=== PATIENT | female | born 1955 | race African-American/Black ===

== ENCOUNTER → 2018-03-07 | Outpatient (CLI) | payer OTHER | LOC: CAT 15:53 | DX: K44.9 Diaphragmatic hernia without obstruction or gangrene (principal); I10 Essential (primary) hypertension; K80.80 Other cholelithiasis without obstruction; I70.0 Atherosclerosis of aorta; K40.90 Unilateral inguinal hernia, without obstruction or gangrene, not specified as recurrent; K42.9 Umbilical hernia without obstruction or gangrene; M25.78 Osteophyte, vertebrae; K57.30 Diverticulosis of large intestine without perforation or abscess without bleeding; N81.3 Complete uterovaginal prolapse ==

== ENCOUNTER 2020-05-15 01:53 | Observation (INO) | payer OTHER ==
[~2020-05-15] VITALS: Ht 165.1 cm; Wt 78.9 kg
[2020-05-15] VITALS (10 sets, daily range): BP systolic 100–149; BP diastolic 57–85
[2020-05-15] MEDS ORDERED: HYDROCHLOROTHIA25 M2 PO (02:11)
[2020-05-15] MEDS ORDERED: PROTONIX40 M2 PO (02:11)
[2020-05-15 02:44] LABS: ABSOLUTE NEUTROPHILS 6.8 thou/uL (1.4-8.2); BASOPHILS 0.6 % (0.0-2.0); EOSINOPHILS 0.8 % (0.0-3.0); HEMOGLOBIN 11.9 gm/dL (12.0-15.0); LYMPHOCYTES 21.8 % (24.0-44.0); MCH 30.4 pg (26.0-34.0); MCHC 32.1 g/dL (28.0-37.0); MCV 94.7 fL (80.0-100.0); MONOCYTES 5.8 % (1.0-8.0); PLATELET COUNT 249 thou/uL (150-400); RBC 3.91 mil/uL (4.20-5.00); RDW 13.6 % (10.5-14.5); WBC 9.5 thou/uL (4.0-11.0)
[2020-05-15 03:05] LABS: ANION GAP 15 mmol/L (7-16); BUN 16 mg/dL (7-18); CALCIUM 8.9 mg/dL (8.5-10.1); CHLORIDE 103 mmol/L (98-107); CO2 25 mmol/L (21-32); CREATININE 1.1 mg/dL (0.6-1.0); GLUCOSE 110 mg/dL (74-106); POTASSIUM 3.4 mmol/L (3.5-5.1); SODIUM 143 mmol/L (136-145)
[2020-05-15 03:13] LABS: ALBUMIN 3.9 g/dL (3.4-5.0); DIRECT BILIRUBIN 0.2 mg/dL (<0.1-0.2); SGOT 34 U/L (15-37); SGPT 26 U/L (30-65); TOTAL PROTEIN 7.2 g/dL (6.4-8.2); TROPONIN-I <0.06 ng/mL (<0.06)
[2020-05-15 04:38] LABS: URINE CLARITY CLEAR; URINE COLOR YELLOW; URINE SPECIFIC GRAVITY 1.015 (1.005-1.035)
[2020-05-15 04:39] LABS: URINE BILIRUBIN NEGATIVE (Negative); URINE BLOOD NEGATIVE (Negative); URINE GLUCOSE-RANDOM* NEGATIVE (Negative); URINE KETONES TRACE (Negative); URINE LEUKOCYTES-REFLEX TRACE (Negative); URINE NITRITE-REFLEX NEGATIVE (Negative); URINE PROTEIN (DIPSTICK) NEGATIVE (Negative); URINE UROBILINOGEN 0.2 E.U./dl (0.2-1.0)
--- NOTE | 2020-05-15 06:36 | NUR ---
PATIENT ARRIVED TO THE UNIT AROUND 0450 THIS MORNING. A&OX4. SR ON THE MONITOR. RA. OREINTATED TO THE ROOM, PERSONAL ITEMS WITHIN REACH. NO COMPLAINTS OF SOA AND DISTESS. FALL PRECAUTIONS ARE IN PLACE.
--- NOTE | 2020-05-15 07:17 | EKG ---
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1955 Requested By: Daniel Sparks Order Number: [id number] MD: Pancho Pina Measurements Intervals [place] Rate: 73 P: 58 [place]: 209 QRS: 46 QRSD: 83 T: 52 QT: 443 QTc: 489 Interpretive Statements Sinus rhythm Probable left atrial enlargement Borderline prolonged QT interval Baseline wander in lead(s) V2 Compared to ECG 05/15/2020 02:49:27 Atrial fibrillation no longer present Electronically Signed On 05-15-2020 7:17:30 SALES PROGRAM MANAGER by Pancho Pina [email or web address] <ELECTRONICALLY SIGNED> By: Pancho Pina MD, [facility] 05/15/20 0717 0410 0410 Pancho Pina MD, [facility] /EPI
--- NOTE | 2020-05-15 07:17 | EKG ---
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1955 Requested By: Daniel Sparks Order Number: [id number] : Pancho Pina Measurements Intervals [place] Rate: 139 P: [place]: QRS: 21 QRSD: 85 T: 62 QT: 336 QTc: 511 Interpretive Statements Atrial fibrillation ST depr, consider ischemia, anterolateral lds Prolonged QT interval No previous ECG available for comparison Electronically Signed On 05-15-2020 7:17:24 SHELTER SUPERVISOR by Pancho Pina [email or web address] <ELECTRONICALLY SIGNED> By: Pancho Pina MD, [facility] 05/15/20 0717 0218 0218 Pancho Pina MD, FACC /EPI
--- NOTE | 2020-05-15 07:17 | EKG ---
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
[2020-05-15 08:54] LABS: CHOLESTEROL 207 mg/dL (<200); HDL CHOLESTEROL 89 mg/dL (>40); LDL CHOLESTEROL 107 mg/dL (<100); TC:HDL 2.3 Ratio (Not establshd); TRIGLYCERIDE 56 mg/dL (<150); VLDL 11 mg/dL (<40)
[2020-05-15 08:57] LABS: SERUM ASSESSMENT Clear
--- NOTE | 2020-05-15 11:02 | 2DMMODE ---
[facility] [place] [address] 2 D/M-MODE ECHOCARDIOGRAM Name: DULCE BRUNO Room #: 213-P ADM IN M.R.#: [id number] Admission: 05/15/20 Attend Phys: Leonidas Acosta MD Discharge: Date of : 57 Report #: [id number] THIS REPORT FOR: cc: NO FAMILY PHYSICIAN or PCP NO FAMILY PHYSICIAN or PCP Pancho Pina MD LOCATED WITHIN [facility] ~ APPROVED REPORT Study performed: 05/15/2020 09:33:08 EXAM: Comprehensive 2D, Doppler, and color-flow Echocardiogram Patient Location: Bedside Room #: 213 Status: routine BSA: 1.82 HR: 74 bpm BP: 136/79 mmHg Rhythm: NSR Other Information Study Quality: Adequate Indications Atrial Fibrillation Chest Pain Hx: HTN, mild CAD, EOTH abuse 2D Dimensions RVDd: 40.58 mm IVSd: 10.85 (7-11mm) LVOT Diam: 22.57 (18-24mm) LVDd: 46.24 mm PWd: 8.90 (7-11mm) LVDs: 20.99 (25-40mm) Aortic Root: 32.90 mm Volumes Left Atrial Volume (Systole) Single Plane 4CH: 41.05 mL Single Plane 2CH: 73.95 mL LA ESV Index: 37.00 mL/m2 Aortic Valve AoV Peak Earnest.: 1.29 m/s AO Peak Gr.: 6.67 mmHg LVOT Max P.36 mmHg LVOT Max V: 1.26 m/s [facility] [place] [address] 2 D/M-MODE ECHOCARDIOGRAM Name: BRUNODULCE Room #: 213-P [facility] IN M.R.#: [id number] Admission: 05/15/20 Attend Phys: Leonidas Acosta MD Discharge: Date of : 57 Report #: [id number] PAULINA Vmax: 3.91 cm2 Mitral Valve E/A Ratio: 1.2 MV Decel. Time: 182.60 ms MV E Max Earnest.: 0.92 m/s MV A Earnest.: 0.78 m/s MV Max Earnest.: 5.69 m/s MV Mean Earnest.: 4.20 m/s MV PHT: 52.95 ms IVRT: 73.82 ms Pulmonary Valve PV Peak Earnest.: 1.74 m/s PV Peak Gr.: 14.45 mmHg Pulmonary Vein P Vein S: 0.44 m/s P Vein A: 0.29 m/s P Vein D: 0.29 m/s P Vein A Dur.: 101.5 msec P Vein S/D Ratio: 1.52 Tricuspid Valve TR Peak Earnest.: 2.49 m/s RAP Estimate: 5.00 mmHg TR Peak Gr.: 24.86 mmHg PA Pressure: 30.00 mmHg Left Ventricle The left ventricle is normal size. There is normal LV segmental wall motion. Mild concentric left ventricular hypertrophy. Left ventricular systolic function is normal. LVEF is 60-65%. The left ventricular diastolic function is normal. Right Ventricle The right ventricle is normal size. The right ventricular systolic function is normal. Atria Left atrium is mildly dilated. The right atrium size is normal. Aortic Valve The aortic valve is normal in structure. No aortic regurgitation is present. There is no aortic valvular stenosis. Mitral Valve There is mitral annular calcification. Mild mitral regurgitation. No evidence of mitral valve stenosis. [facility] [place] [address] 2 D/M-MODE ECHOCARDIOGRAM Name: DULCE BRUNO Room #: 213-P ADM IN M.R.#: [id number] Admission: 05/15/20 Attend Phys: Leonidas Acosta MD Discharge: Date of : 57 Report #: [id number] Tricuspid Valve The tricuspid valve is normal in structure. Mild to moderate tricuspid regurgitation. Estimated PAP of 30mmHg. Pulmonic Valve Pulmonic valve is not well visualized. Trace to mild pulmonic regurgitation. Great Vessels The aortic root is normal in size. The ascending aorta is normal in size. IVC is normal in size and collapses >50% with inspiration. Pericardium There is no pericardial effusion. <Conclusion> Normal left ventricle size with mild concentric hypertrophy EF 65% Mild left atrial enlargement Normal right ventricle size/function Color-flow Doppler study was performed of the aortic/mitral/tricuspid mal right ventricle size/function/pulmonary valve Mild mitral annular calcification Mild tricuspid valve insufficiency Pulmonary systolic pressure estimated 30 mmHg No pericardial effusion <ELECTRONICALLY SIGNED> By: Pancho Pina MD, FACC 05/15/201100 00 00 Pancho Pina MD, FACC /INF
--- NOTE | 2020-05-15 13:51 | EKG ---
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
--- NOTE | 2020-05-15 19:58 | NUR ---
PT CARE ASSUMED AT 0700. ASSESSMENTS CHARTED. MEDICATIONS CHARTED. LAC IV. SINUS RHYTHM. SBA. TOILET.
[2020-05-16 04:15] VITALS: BP 167/90
[2020-05-16 04:51] LABS: CALCIUM 8.4 mg/dL (8.5-10.1); POTASSIUM 3.7 mmol/L (3.5-5.1); TROPONIN-I 0.19 ng/mL (<0.06)
--- NOTE | 2020-05-16 04:57 | NUR ---
RECEIVED CARE OF THIS PATIENT AT 1900. PATIENT ALERT AND ORIENTED X4. UP WITH SBA. C/O PAIN, MED GIVEN. SALINE LOCK IN LAC. SLEPT MOST OF THE NIGHT.
[2020-05-16 07:36] VITALS: BP 178/76
[2020-05-16 08:05] VITALS: BP 178/76
[2020-05-16] MEDS ORDERED: ASPIR 8181 MG PO (09:24)
[2020-05-16] MEDS ORDERED: LISINOPRIL20 MG PO (09:24)
[2020-05-16] MEDS ORDERED: ROSUVASTATIN CA10 MG PO (09:24)
[2020-05-16] MEDS ORDERED: CARDIZEM CD120 MG PO (09:24)
[2020-05-16] MEDS ORDERED: ACETAMINOPHEN325 M1 PO (12:07)
[2020-05-16 12:33] VITALS: BP 178/76
--- NOTE | 2020-05-16 14:16 | NUR ---
PT CARE ASSUMED AT 0700. ASSESSMENTS CHARTED. MEDICATIONS CHARTED. LAC IV. SINUS RHYTHM. SBA. PT TO BE DISCHARGED TO HOME. DISCHARGE PAPERWORK COMPLETE. TELEMETRY D/C'D. IV. D/C'D
== END 2020-05-16 14:01 | disposition home or self-care (01) ==
LOC: ER 01:53 → 2N 04:03 → EROBS 04:03 → 2N 04:03
PROVIDERS: Emergency Medicine; Nurse Practitioner; Nurse Practitioner Family; ADMIT Internal Medicine; ATTEND Internal Medicine
DX: I48.20 Chronic atrial fibrillation, unspecified (principal); R07.89 Other chest pain; I10 Essential (primary) hypertension; K21.9 Gastro-esophageal reflux disease without esophagitis; E07.81 Sick-euthyroid syndrome; Z79.82 Long term (current) use of aspirin; Z79.899 Other long term (current) drug therapy; Z20.828 Contact with and (suspected) exposure to other viral communicable diseases; Z98.84 Bariatric surgery status
CPT/HCPCS: 10081